=== PATIENT | male | born 1980 | race Caucasian/White ===

== ENCOUNTER 2017-02-06 12:00 | Emergency (ER) | payer OTHER ==
[~2017-02-06] VITALS: Ht 182.9 cm; Wt 91.0 kg
[~2017-02-06 12:00] MED LIST: BACT800T5 PO; CEPH500C3 PO; IBUP800T23 PO; METH10TA PO
[2017-02-06 12:10] VITALS: BP 131/82; PULSE 76; RESP 16; TEMP 98.4; O2SAT 100
== END 2017-02-06 13:00 | disposition left against medical advice (07) ==
LOC: PHEFT 12:00
DX: K08.89 Other specified disorders of teeth and supporting structures (principal)
CPT/HCPCS: 99281